=== PATIENT | male | born 1965 | race African-American/Black ===

== ENCOUNTER 2020-01-20 16:45 | Emergency (ER) | payer MEDICAID ==
[~2020-01-20] VITALS: Ht 175.3 cm; Wt 101.8 kg
[2020-01-20] MEDS ORDERED: ACETAMINOPHEN 325MG TABLET ONE (17:26)
[2020-01-20] MEDS ORDERED: SODIUM CHLORIDE 0.9% 1,000 ML IV ONE ×2 (17:27→18:30)
[2020-01-20] MEDS ORDERED: ACETAMINOPHEN 325MG TABLET PO STA (17:27)
[2020-01-20 17:42] LABS: BASOPHILS % 0.2 % (0.0-2.0); HEMATOCRIT. 36.7 % (42.0-52.0); HEMOGLOBIN. 12.1 g/dL (14.0-18.0); LYMPHOCYTES % 7.7 % (20.0-50.0); MEAN CORPUSCULAR HEMOGLOBIN 27.9 pg (28.0-32.0); MEAN CORPUSCULAR VOLUME 84.4 fL (80.0-94.0); MEAN PLATELET VOLUME 7.8 fl (7.4-10.4); MONOCYTES % 7.6 % (2.0-8.0); NEUTROPHILS % 84.5 % (40.0-76.0); PLATELET 238 x1000/uL (130-400); RED BLOOD CELL COUNT 4.35 mill/uL (4.7-6.1); RED CELL DISTRIBUTION WIDTH 14.3 % (11.6-14.6)
[2020-01-20 17:51] LABS: CHLORIDE 101 mEq/L (98-107)
[2020-01-20 18:13] LABS: CLARITY URINE CLEAR (CLEAR); COLOR URINE YELLOW (YELLOW); KETONES URINE NEGATIVE (NEGATIVE); LEUKOCYTE ESTERASE URINE NEGATIVE (NEGATIVE); NITRITE URINE NEGATIVE (NEGATIVE); OCCULT BLOOD URINE 2+ (NEGATIVE); PROTEIN URINE 2+ (NEGATIVE); SPECIFIC GRAVITY URINE 1.014 (1.005-1.030)
[2020-01-20] MEDS ORDERED: KETOROLAC 15MG/ML VIAL IV ONE (18:15)
[2020-01-20 19:48] VITALS: BP 122/81
== END 2020-01-20 19:52 | disposition home or self-care (01) ==
LOC: ER 16:45
DX: R50.9 Fever, unspecified (principal); Z20.828 Contact with and (suspected) exposure to other viral communicable diseases; R51 Headache; R05 Cough; I49.9 Cardiac arrhythmia, unspecified
CPT/HCPCS: 36415; 71045; 80053; 81003; 83605; 84145; 85025; 87040; 87635; 93005; 96361; 96374; 99285; J1885; J7030